=== PATIENT | male | born 1990 | race Caucasian/White ===

== ENCOUNTER 2016-11-09 12:54 | Day surgery (SDC) | payer OTHER ==
[~2016-11-09] VITALS: Ht 177.8 cm; Wt 100.0 kg
[~2016-11-09 12:54] MED LIST: APPLE CIDER VI500 MG PO; BUPROPION XL150 MG PO; CYANOCOBALAM1000 MCG PO; LEVOTHYROXINE50 MCG PO; LYRICA100 MG PO; MEDROL DOSEPAK4 MG PO; MEN'S MULTI-VI1 EACH PO; MOTRIN800 MG PO; OMEPRAZOLE20 MG PO; OXYCODONE HCL10 MG PO; PERCOCET 5/31 TABLET PO; TIZANIDINE HCL2 MG PO; TUMERIC PO; VALIUM2 MG PO; VITAMIN D-32000 UNI2 PO; [UNRECOGNIZED DRUG - OTHER] PO
[2016-11-09 13:19] VITALS: BP 125/68
[2016-11-09] MEDS ORDERED: METHADONE10 MG PO (13:31)
[2016-11-09 19:00] VITALS: BP 114/68
[2016-11-09 20:00] VITALS: BP 105/66
== END 2016-11-09 20:12 | disposition home or self-care (01) ==
LOC: SDC 12:54
DX: M51.16 Intervertebral disc disorders with radiculopathy, lumbar region (principal); Z87.891 Personal history of nicotine dependence
CPT/HCPCS: 72020; 76000; J0330; J0690; J1100; J1170; J1885; J2175; J2250; J2405; J2710; J3010

== ENCOUNTER 2017-05-17 01:18 | Emergency (ER) | payer SELFPAY ==
[~2017-05-17] VITALS: Ht 177.8 cm; Wt 185.0 kg
[~2017-05-17 01:18] MED LIST changes: +METHADONE10 MG PO
[2017-05-17 03:30] VITALS: BP 127/84
[2017-05-17] MEDS ORDERED: KEFLEX500 MG PO (03:39)
== END 2017-05-17 03:30 | disposition home or self-care (01) ==
LOC: EME 01:18
PROC: 0HQDXZZ Repair Right Lower Arm Skin, External Approach (ICD-10-PCS; principal; 2017-05-17)
DX: S51.811A Laceration without foreign body of right forearm, initial encounter (principal); X99.1XXA Assault by knife, initial encounter; F17.200 Nicotine dependence, unspecified, uncomplicated
CPT/HCPCS: 99281; 99284